=== PATIENT | female | born 1975 | race Two or more races ===

== ENCOUNTER 2017-03-12 01:11 | Emergency (ER) | payer MEDICAID ==
[~2017-03-12] VITALS: Ht 157.5 cm; Wt 68.0 kg
[2017-03-12] MEDS ORDERED: NEXIUM (01:40)
[2017-03-12] MEDS ORDERED: TRAMADOL (01:40)
--- NOTE | 2017-03-12 01:44 | NUR ---
Patient walked in to ER c/o RUQ abdominal pain x3 months. She states that she has frequented another emergency room since October of this year, has not seen a specialist or primary care physician, and has had no improvement. Education provided regarding following up with specialty services as directed, to room [facility]NE[facility]MARIE Mccain at bedside for MSE.
[2017-03-12] MEDS ORDERED: HYDROMORPHONE 1 MG/1 ML DISP.SYRIN IV ONE (02:00)
[2017-03-12] MEDS ORDERED: KETOROLAC TROMETHAMINE 15 MG INJ IV ONE (02:00)
[2017-03-12] MEDS ORDERED: ONDANSETRON 4 MG/2 ML VIAL IV ONE (02:00)
[2017-03-12] MEDS ORDERED: HYDROMORPHONE 2 MG/1 ML DISP.SYRIN ONE (02:13)
[2017-03-12] MEDS ORDERED: ONDANSETRON 4 MG/2 ML VIAL ONE (02:13)
[2017-03-12] MEDS ORDERED: KETOROLAC TROMETHAMINE 30 MG INJ ONE (02:13)
[2017-03-12 02:20] LABS: BILIRUBIN,DIRECT 0.1 mg/dL (0.0-0.2); BILIRUBIN,TOTAL 0.7 mg/dL (0.2-1.0); CREATININE 0.7 mg/dL (0.6-1.3); POTASSIUM 3.3 mmol/L (3.5-5.1); TOTAL PROTEIN, SERUM 7.3 g/dL (6.4-8.2)
[2017-03-12 02:21] LABS: BASOPHILS % (AUTO) 0.3 % (0.0-2.0); EOSINOPHILS # (AUTO) 0.1 K/uL (0.0-0.7); HEMATOCRIT 37.9 % (37-47); HEMOGLOBIN 12.3 G/DL (12.0-16.0); LYMPHOCYTES # (AUTO) 1.3 K/UL (0.8-4.8); MEAN CORPUSCULAR HEMOGLOBIN 26.5 UUG (27.0-31.0); MEAN CORPUSCULAR HGB CONC 33 g/dL (32.0-37.0); MEAN CORPUSCULAR VOLUME 81.6 FL (81.0-99.0); MONOCYTES # (AUTO) 0.4 K/UL (0.1-1.30); MONOCYTES % (AUTO) 8.6 % (0.0-11.0); NEUTROPHILS # (AUTO) 2.3 K/UL (1.8-8.9); NEUTROPHILS % (AUTO) 57.1 % (38.5-71.5); PLATELET COUNT (AUTO) 176 K/UL (150-450); RED BLOOD CELL COUNT(AUTO) 4.65 MIL/UL (4.2-5.4); WHITE BLOOD COUNT (AUTO) 4.1 K/UL (4.0-11.2)
[2017-03-12] MEDS ORDERED: POTASSIUM CHLORIDE 20 MEQ TAB.PRT.SR PO ONE (02:30)
--- NOTE | 2017-03-12 02:40 | NUR ---
Radiology at bedside for US.
[2017-03-12] MEDS ORDERED: POTASSIUM CHLORIDE 20 MEQ TAB.PRT.SR ONE (02:47)
--- NOTE | 2017-03-12 02:50 | NUR ---
Radiology completed US, preliminary results to ERMD.
--- NOTE | 2017-03-12 03:00 | NUR ---
Patient states that [place] [facility] [place] told "you are more likely to win the lottery than get your gallbladder removed." Patient has emergency [facility] and does not know what to do to get the intervention needed. Left message with ER social group worker to follow the case and recommended patient return during normal business hours to speak to the social group worker.
--- NOTE | 2017-03-12 03:01 | NUR ---
Patient discharged to home in stable conditon. Written and verbal after care instructions given. Patient verbalizes understanding of instructions.
--- NOTE | 2017-03-12 10:01 | NUR ---
PRATIMA followed up with patient this morning. PRATIMA called patient at [phone] and was able to speak with her regarding her concern with health insurance. Patient has emergency [employer] only, and was inquiring about regular [facility]. PRATIMA provided information regarding eligibility for [facility] based on an individual's residency status. PRATIMA also stated that she will contact the hospital's director life insurance to see if there was any additional information besides the one that PRATIMA provided, and will call patient back. Patient thanked PRATIMA for her time and help.
--- NOTE | 2017-03-12 10:11 | NUR ---
PRATIMA left a voicemail message for Emily at [employer] ([employer]) [phone].
== END 2017-03-12 03:02 | disposition home or self-care (01) ==
LOC: ER 01:14
DX: K80.50 Calculus of bile duct without cholangitis or cholecystitis without obstruction (principal); K80.20 Calculus of gallbladder without cholecystitis without obstruction
CPT/HCPCS: 36415; 76705; 80048; 80076; 83690; 84703; 85025; 96374; 96375; 99285; A4663; J1170; J1885; J2405